=== PATIENT | male | born 1985 | race Caucasian/White ===

== ENCOUNTER 2020-12-01 15:11 | Emergency (ER) | payer BC ==
[~2020-12-01] VITALS: Ht 172.7 cm; Wt 92.1 kg
[~2020-12-01 15:11] MED LIST: Acular3 ML LEFTEYE; ERYT.5TO LEFTEYE; IBUP800 PO
== END 2020-12-01 17:42 | disposition home or self-care (01) ==
LOC: ER 15:11
DX: H53.9 Unspecified visual disturbance (principal); H57.12 Ocular pain, left eye; S00.12XA Contusion of left eyelid and periocular area, initial encounter; S09.90XA Unspecified injury of head, initial encounter; Z91.018 Allergy to other foods; W22.8XXA Striking against or struck by other objects, initial encounter; Y93.89 Activity, other specified
CPT/HCPCS: 70450; 99284-25

== ENCOUNTER → 2021-09-30 | Outpatient (CLI) | payer BC ==
[2021-09-30 15:03] LABS: Alanine Aminotransfer (ALT/SGP 19 U/L (12-78); Albumin, Blood 4.1 g/dL (3.4-5.0); Albumin/Globulin Ratio 1.4 (0.8-1.8); Alk Phos 67 U/L (50-136); Anion Gap 6 mmol/L (6-16); Aspartate Aminotrans (AST/SGOT 9 U/L (12-37); Bilirubin, Total 0.4 mg/dL (0.1-1.0); Blood Urea Nitrogen 13 mg/dL (8-24); Bun/Creatinine Ratio 16.1 (12.0-20.0); CO2, Blood 27 mmol/L (21-32); Calcium, Blood 9.1 mg/dL (8.5-10.1); Chloride, Blood 108 mmol/L (98-108); Cholesterol 150 mg/dL (50-200); Creatinine, Blood 0.81 mg/dL (0.60-1.20); Glomerular Filtration Rate 118 (60-); Glucose, Blood 93 mg/dL (70-99); HDL Cholesterol 50 mg/dL (>39); LDL/HDL RATIO 1.8; Low Density Lipoprotein Chol 92 mg/dL (0-110); Potassium, Blood 4.5 mmol/L (3.5-5.5); Sodium, Blood 141 mmol/L (136-145); Total Protein, Blood 7.1 g/dL (6.4-8.2); Triglycerides 39 mg/dL (30-140); Very Low Density Lipoprot Chol 7 mg/dL (6-28)
[2021-09-30 15:13] LABS: BASOPHILS ABSOLUTE AUTO 0.05 K/mm3 (0.00-0.23); BASOPHILS PERCENT AUTO 1 % (0-2); EOSINOPHILS ABSOLUTE AUTO 0.19 K/mm3 (0.00-0.68); EOSINOPHILS PERCENT AUTO 4 % (0-6); Hematocrit 44.8 % (37.0-53.0); Hemoglobin 15.1 g/dL (13.5-17.5); IMMATURE GRAN ABSOLUTE AUTO 0.03 K/mm3 (0.00-0.10); IMMATURE GRAN PERCENT AUTO 1 % (0-1); LYMPHOCYTES PERCENT AUTO 26 % (21-46); MONOCYTES ABSOLUTE AUTO 0.54 K/mm3 (0.16-1.47); MONOCYTES PERCENT AUTO 11 % (4-13); Mean Corpuscular HGB 29.2 pg (26.0-34.0); Mean Corpuscular HGB Conc 33.7 g/dL (31.5-36.5); Mean Corpuscular Volume 87 fL (80-100); Mean Platelet Volume 11.3 fL (9.1-12.4); NEUTROPHILS ABSOLUTE AUTO 2.95 K/mm3 (1.96-9.15); NEUTROPHILS PERCENT AUTO 58 % (41-73); Platelet Count 349 K/mm3 (150-400); RDW Coefficient Variation 12.4 % (11.7-14.2); RDW Standard Deviation 39.1 fL (35.1-46.3); Red Blood Cell Count 5.17 M/mm3 (4.30-5.90); White Blood Cell Count 5.06 K/mm3 (4.00-11.30)
== END | disposition home or self-care (01) ==
LOC: LAB SHORT 09:25 → LAB 09:25
PROVIDERS: Hospitalist
DX: Z13.220 Encounter for screening for lipoid disorders (principal); R07.9 Chest pain, unspecified; R53.83 Other fatigue
CPT/HCPCS: 80053; 80061; 84443; 85025; 85651

== ENCOUNTER → 2023-04-28 | Outpatient (CLI) | payer BC ==
[2023-04-30 08:48] LABS: HIV 1,2 COMBO ANTIGEN/ANTIBODY Negative (Negative)
[2023-04-30 10:41] LABS: HEPATITIS B SURFACE ANTIBODY 426.18 IU/L
[2023-04-30 10:49] LABS: HEPATITIS B SURFACE ANTIGEN Negative (Negative)
[2023-04-30 19:55] LABS: HCV QNT BY NAAT (IU/ML) Not Detected; HCV QNT BY NAAT (LOG IU/ML) Not Detected; HCV QNT BY NAAT INTERP Not Detected (Not Detected)
== END ==
LOC: LAB SHORT 15:50
PROVIDERS: Chiropractor
DX: Z20.9 Contact with and (suspected) exposure to unspecified communicable disease (principal)
CPT/HCPCS: 84460

== ENCOUNTER 2023-06-05 01:19 | Emergency (ER) | payer BC ==
[~2023-06-05] VITALS: Ht 175.3 cm; Wt 97.5 kg
[2023-06-05 01:25] VITALS: BP 141/96
[2023-06-05] MEDS ORDERED: Ibuprofen 600 MG Tab PO ONE (02:30)
[2023-06-05] MEDS ORDERED: Tetracaine HCl/Pf 0.5% Opth Soln 4 ml BOTHEYES ONE (02:30)
[2023-06-05] MEDS ORDERED: Fluorescein Sod 1MG Opth Strips BOTHEYES ONE (03:00)
[2023-06-05] MEDS ORDERED: Cyclogyl 1% Opth2 ML BOTHEYES (03:23)
== END 2023-06-05 03:30 | disposition home or self-care (01) ==
LOC: ER 01:19
DX: H20.9 Unspecified iridocyclitis (principal); Z91.018 Allergy to other foods
CPT/HCPCS: 99283; A9270

== ENCOUNTER → 2023-06-08 | Outpatient (CLI) | payer BC ==
[~2023-06-08] MED LIST changes: +Cyclogyl 1% Opth2 ML BOTHEYES
[2023-06-09 14:56] LABS: HIV 1,2 COMBO ANTIGEN/ANTIBODY Negative (Negative)
[2023-06-10 03:33] LABS: HCV QNT BY NAAT (IU/ML) Not Detected; HCV QNT BY NAAT (LOG IU/ML) Not Detected; HCV QNT BY NAAT INTERP Not Detected (Not Detected)
== END ==
LOC: LAB SHORT 14:14 → LAB 14:14
PROVIDERS: Chiropractor
DX: Z20.9 Contact with and (suspected) exposure to unspecified communicable disease (principal)
CPT/HCPCS: 87389; 87522